=== PATIENT | female | born 1980 | race Caucasian/White ===

== ENCOUNTER 2021-09-02 18:39 | Emergency (ER) | payer SELFPAY ==
[~2021-09-02] VITALS: Ht 167.6 cm; Wt 81.0 kg
[2021-09-02 18:49] VITALS: BP 150/94
== END 2021-09-02 22:12 | disposition left against medical advice (07) ==
LOC: ER 18:39
DX: R06.02 Shortness of breath (principal); Z53.21 Procedure and treatment not carried out due to patient leaving prior to being seen by health care provider
CPT/HCPCS: 93005